=== PATIENT | female | born 1965 | race Two or more races ===

== ENCOUNTER 2023-08-22 14:48 | Inpatient (IN) | payer BC ==
[~2023-08-22] VITALS: Ht 167.6 cm; Wt 99.8 kg
[2023-08-22 17:51] LABS: HEMATOCRIT 44.1 % (36.0-45.00); MEAN CELL VOLUME 88.1 fL (80.00-100.00); MEAN CORPUSCULAR HGB CONC 34.1 g/dl (32.0-36.0); PLATELET COUNT 158 K/uL (150-450); RED CELL DISTRIBUTION WIDTH 13.8 % (11.5-14.5)
[2023-08-22 18:13] LABS: CALCIUM 9.5 mg/dL (8.5-10.1); CREATININE SERUM 1.15 mg/dL (0.55-1.02); GFR 48.13; POTASSIUM 3.96 mEq/L (3.5-5.1)
[2023-08-24 06:51] LABS: HEMOGLOBIN 13.7 g/dL (12.0-15.00); MEAN CELL VOLUME 87.8 fL (80.00-100.00); MEAN CORPUSCULAR HEMOGLOBIN 30.1 pg (27.00-32.0); MEAN CORPUSCULAR HGB CONC 34.3 g/dl (32.0-36.0); PLATELET COUNT 145 K/uL (150-450); RED BLOOD COUNT 4.55 M/uL (4.00-6.00); RED CELL DISTRIBUTION WIDTH 13.8 % (11.5-14.5)
[2023-08-24 07:12] LABS: CALCIUM 8.3 mg/dL (8.5-10.1); CREATININE SERUM 1.2 mg/dL (0.55-1.02); GFR 45.82; POTASSIUM 3.92 mEq/L (3.5-5.1)
== END 2023-08-26 10:20 | disposition home or self-care (01) | DRG 392 ==
LOC: ER 14:49 → MEDI 08-23 13:32
PROVIDERS: Emergency Medicine; ADMIT Internal Medicine; ATTEND Internal Medicine
DX: K52.89 Other specified noninfective gastroenteritis and colitis (principal)